=== PATIENT | male | born 1980 | race Caucasian/White ===

== ENCOUNTER 2018-07-29 11:26 | Emergency (ER) | payer OTHER | END 2018-07-29 12:11 | disposition home or self-care (01) | LOC: FTE 11:26 | DX: K08.89 Other specified disorders of teeth and supporting structures (principal) | CPT/HCPCS: 99283; Z7502 ==

== ENCOUNTER 2018-08-16 13:25 | Emergency (ER) | payer OTHER | END 2018-08-16 14:15 | disposition home or self-care (01) | LOC: FTE 14:15 | DX: K08.89 Other specified disorders of teeth and supporting structures (principal); J02.9 Acute pharyngitis, unspecified; Z87.891 Personal history of nicotine dependence | CPT/HCPCS: 99283; Z7502 ==

== ENCOUNTER 2018-12-07 21:37 | Emergency (ER) | payer SELFPAY, OTHER | END 2018-12-08 01:09 | disposition left against medical advice (07) | LOC: FTE 21:37 | DX: Z53.21 Procedure and treatment not carried out due to patient leaving prior to being seen by health care provider (principal) ==

== ENCOUNTER 2018-12-09 00:27 | Emergency (ER) | payer SELFPAY | END 2018-12-09 04:32 | disposition left against medical advice (07) | LOC: FTE 00:27 | DX: Z53.21 Procedure and treatment not carried out due to patient leaving prior to being seen by health care provider (principal) ==

== ENCOUNTER 2018-12-11 09:00 | Emergency (ER) | payer OTHER ==
[2018-12-11] MEDS: IBUPROFEN 600 MG TAB PO (11:31)
== END 2018-12-11 11:45 | disposition home or self-care (01) ==
LOC: FTE 11:45
DX: K08.89 Other specified disorders of teeth and supporting structures (principal); L30.9 Dermatitis, unspecified; Z87.891 Personal history of nicotine dependence
CPT/HCPCS: 99283; Z7502